=== PATIENT | female | born 1965 | race Caucasian/White ===

== ENCOUNTER 2020-12-03 11:46 | Emergency (ER) | payer OTHER ==
[2020-12-03 12:00] VITALS: BP 156/82; PULSE 63; TEMP 98.4; BMI 23.6
[2020-12-03] MEDS ORDERED: ACETAMINOPHEN 325 MG TABLET (FP) PO ONE (14:11)
[2020-12-03] MEDS ORDERED: METHOCARBAMOL 500 MG TABLET PO ONE (14:13)
[2020-12-03] MEDS ORDERED: ACETAMINOPHEN 500 MG TABLET (FP) ONE (14:16)
[2020-12-03] MEDS ORDERED: METHOCARBAMOL 500 MG TABLET ONE (14:16)
== END 2020-12-03 16:51 | disposition home or self-care (01) ==
LOC: JERFT 11:46
DX: R51.9 Headache, unspecified (principal); M54.2 Cervicalgia; M54.50 Low back pain, unspecified; V43.62XA Car passenger injured in collision with other type car in traffic accident, initial encounter
CPT/HCPCS: 70450-TC; 72040-TC; 72070-TC-FY; 99285-25

== ENCOUNTER 2023-01-29 13:11 | Emergency (ER) | payer OTHER ==
[2023-01-29 13:25] VITALS: RESP 18; BMI 22.4
[2023-01-29] MEDS ORDERED: FAMOTIDINE 20 MG TABLET PO ONE (15:09)
[2023-01-29] MEDS ORDERED: MAG HYDROX/AL HYDROX/SIMETH 30 ML UNIT-DOSE CUP PO ONE (15:09)
[2023-01-29] MEDS ORDERED: ACETAMINOPHEN 1000 MG/100 ML BAG IVPB ONE (15:41)
[2023-01-29] MEDS ORDERED: ONDANSETRON 4 MG/2 ML VIAL IVPUSH ONE ×2 (15:41→16:07)
[2023-01-29] MEDS ORDERED: SODIUM CHLORIDE 0.9% 500 ML INFUS.BAG IV ONE ×2 (15:41→16:06)
[2023-01-29] MEDS ORDERED: FAMOTIDINE 20 MG TABLET ONE (16:14)
[2023-01-29] MEDS ORDERED: ONDANSETRON 4 MG/2 ML VIAL ONE (16:15)
[2023-01-29] MEDS ORDERED: ACETAMINOPHEN INJECTION 100 ML IVPB ONE (16:15)
[2023-01-29] MEDS ORDERED: MAG HYDROX/AL HYDROX/SIMETH 30 ML UNIT-DOSE CUP ONE (16:15)
[2023-01-29 16:49] LABS: BASO % 0.9 % (0-2.0); EOS % 1.7 % (0-4.5); HEMATOCRIT 44.5 % (32.4-45.2); HEMOGLOBIN 14.5 GM/dL (10.7-15.3); LYMPH % 35.1 % (8-40); MCH 27.9 pg (25.7-33.7); MCHC 32.5 g/dl (32.0-36.0); MEAN CELL VOLUME 85.9 fl (80-96); MEAN PLT VOLUME 8.4 fl (7.5-11.1); MONO % 11.8 % (3.8-10.2); NEUT % 50.5 % (42.8-82.8); PLATELET COUNT 357 10^3/uL (134-434); RBC 5.18 M/mm3 (3.60-5.2); RDW 14.5 % (11.6-15.6); WHITE BLOOD COUNT 5.1 K/mm3 (4.0-10.0)
[2023-01-29 17:00] LABS: URINE APPEARANCE CLEAR; URINE BILIRUBIN NEGATIVE (NEGATIVE); URINE COLOR YELLOW; URINE GLUCOSE (UA) NEGATIVE (NEGATIVE); URINE KETONE TRACE (NEGATIVE); URINE LEUK ESTERASE NEGATIVE (NEGATIVE); URINE NITRITE NEGATIVE (NEGATIVE); URINE PROTEIN NEGATIVE (NEGATIVE); URINE UROBILINOGEN 0.2 mg/dL (0.2-1.0)
[2023-01-29 17:14] VITALS: BP 126/76; PULSE 67; TEMP 98.2
[2023-01-29 17:14] LABS: POTASSIUM 4.9 mmol/L (3.5-5.1)
[2023-01-29 17:16] LABS: CALCIUM 9.7 mg/dL (8.5-10.1)
[2023-01-29 17:17] LABS: BLOOD UREA NITROGEN 13.3 mg/dL (7-18)
[2023-01-29 17:20] LABS: CREATININE 0.8 mg/dL (0.55-1.3)
[2023-01-29 17:21] LABS: BILIRUBIN,TOTAL 0.3 mg/dL (0.2-1); TOT PROT 7.8 g/dl (6.4-8.2)
== END 2023-01-29 19:10 | disposition home or self-care (01) ==
LOC: JER 13:11
PROC: 3E033NZ Introduction of Analgesics, Hypnotics, Sedatives into Peripheral Vein, Percutaneous Approach (ICD-10-PCS; principal; 2023-01-29)
PROC: 3E033GC Introduction of Other Therapeutic Substance into Peripheral Vein, Percutaneous Approach (ICD-10-PCS; 2023-01-29)
DX: R10.13 Epigastric pain (principal); R11.2 Nausea with vomiting, unspecified; Z20.822 Contact with and (suspected) exposure to COVID-19
CPT/HCPCS: 0241U-QW; 36415; 80053; 81003; 83605; 83690; 84439; 84443; 84484; 85025; 87086; 93005; 93010; 99284-25